=== PATIENT | female | born 2000 | race Caucasian/White ===

== ENCOUNTER 2021-06-02 04:56 | Inpatient (IN) | payer OTHER ==
[2021-06-02] MEDS ORDERED: Sodium Chloride 0.9% 10 ML Syringe FLUSH PRN (08:23)
[2021-06-02] MEDS ORDERED: Lidocaine 1% 50 ML MDV INJECT ONE (08:23)
[2021-06-02] MEDS ORDERED: Oxytocin/Lactated Ringers 10 UNIT/1,000 ML BAG IV SCH ×2 (08:30)
--- NOTE | 2021-06-02 08:36 | PCM.LDHP ---
L&D History of Present Illness - General Date of Service: 06/02/21 Admit Problem/Dx: Patient Status Order with Admit Dx/Problem 06/02/21 08:23 Patient Status [ADT] Routine Admission Diagnosis/Problem Admission Diagnosis/Problem - History of Present Illness Introduction:: Patient is a 20yo at 0 gestation who presents today for induction of labor secondary to suspected cholestasis with mild elevations in her transaminases. Bile acids are still pending. She has agreed to medical induction for suspected cholestasis based on elevated transaminases and full body itching at 37 weeks 1 day. She denies contractions, vaginal bleeding or leakage. She has been perceiving adequate movements. She had care via a local branch administrator for most of her . She has seen one of my partners wants around 28 weeks. OB Labs: Blood Type: A+ Ab screen: Positive, anti-M, extremely low risk for hemolysis Hep B sAg: Negative HIV: Negative RPR: Negative Rubella: immune GC/Chlamydia: Negative Glucose screen: Not performed GBS: initially declined. after further discussion on admission, she agrees to have the test. - Related Data Allergies/Adverse Reactions: Allergies Allergy/AdvReac Type Severity Reaction Status Date / Time No Known Allergies Allergy Verified 06/02/21 09:36 Home Medications: Home Meds Chlorpheniramine Maleate [Aller-Chlor] 1 tab PO DAILY PRN 06/02/21 [History] Pnv No.95/Ferrous Fum/Folic AC [ Multivitamin Tablet] 1 tab PO DAILY 06/02/21 [History] H&P Review of Systems - Review of Systems: Review Of Systems: See Below General: Reports: No Symptoms HEENT: Reports: No Symptoms Pulmonary: Reports: No Symptoms Cardiovascular: Reports: No Symptoms Gastrointestinal: Reports: No Symptoms Genitourinary: Reports: No Symptoms Musculoskeletal: Reports: No Symptoms Skin: Reports: No Symptoms Psychiatric: Reports: No Symptoms Neurological: Reports: No Symptoms Hematologic/Lymphatic: Reports: No Symptoms Immunologic: Reports: No Symptoms L&D Exam - Exam Exam: See Below - OB Specific Movement: Active Heart Tones: Present Heart Tones per Min: 155 Heart Rate (FHR) Variability: Moderate (6-25 bpm) Presentation: Vertex (confirmed by bedside US) - Rocha Score Rocha Score Cervix Position: Midposition Rocha Score Consistency: Medium Rocha Score Effacement: 51-70% Rocha Score Dilation: Closed Rocha Score 's Station: -3 Rocha Score Total: 4 - Exam General: Alert, Oriented HEENT: Conjunctiva Clear, Pupils Equal Neck: Supple Lungs: Clear to Auscultation, Normal Respiratory Effort Cardiovascular: Regular Rate, Regular Rhythm. No: Systolic Murmur GI/Abdominal Exam: Normal Bowel Sounds, Soft, Non-Tender Genitourinary: Normal external exam Extremities: Normal Inspection, No Pedal Edema Skin: Warm, Dry, Intact Psychiatric: Alert, Normal Affect, Normal Mood - Patient Data Result Diagrams: 06/02/21 09:45 06/02/21 09:45 - Problem List (1) Cholestasis during in third trimester SNOMED Code(s): 172026206 ICD Code: O26.613 - LIVER AND BILIARY TRACT DISORD IN , THIRD TRIMESTER; K83.1 - OBSTRUCTION OF BILE DUCT Status: Acute Current Visit: Yes Problem List Initiated/Reviewed/Updated: Yes Orders Last 24hrs: Active Orders 24 hr Category Date Time Status Patient Status [ADT] Routine ADT 06/02/21 08:23 Active Activity as Tolerated [RC] PFP Care 06/02/21 08:23 Active Communication Order [RC] ASDIRECTED Care 06/02/21 08:23 Active Heart Tones [RC] ASDIRECTED Care 06/02/21 08:24 Active Non Stress Test [RC] PER UNIT ROUTINE Care 06/02/21 08:23 Active Notify Provider [RC] PFP Care 06/02/21 08:23 Active Notify Provider [RC] PRN Care 06/02/21 08:23 Active Peripheral IV Care [RC] . DIRECTED Care 06/02/21 08:24 Active Urinary Catheter Assessment [RC] ASDIRECTED Care 06/02/21 08:23 Active Vital Signs [RC] PER UNIT ROUTINE Care 06/02/21 08:23 Active Regular Diet [DIET] Diet 06/02/21 Lunch Active CBC WITH AUTO DIFF [HEME] Stat Lab 06/02/21 08:23 Ordered COMPREHENSIVE METABOLIC PN,CMP [CHEM] Stat Lab 06/02/21 08:23 Ordered CORONAVIRUS COVID-19 JAMSHID [MOLEC] Stat Lab 06/02/21 08:25 Ordered RAPID PLASMA REAGIN,RPR [CHEM] Routine Lab 06/02/21 08:23 Ordered Lactated Ringers [Ringers, Lactated] 1,000 ml Med 06/02/21 08:30 Ordered IV ASDIRECTED Lidocaine 1% [Xylocaine 1%] Med 06/02/21 08:23 Once 50 ml INJECT ONETIME ONE Nalbuphine [Nubain] Med 06/02/21 08:23 Ordered 10 mg IVPUSH Q2H PRN Oxytocin/Lactated Ringers [Pitocin in LR 10 Units/1,000 Med 06/02/21 08:30 Ordered ML] 10 unit in 1,000 ml IV .CONTINUOUS Oxytocin/Lactated Ringers [Pitocin in LR 10 Units/1,000 Med 06/02/21 08:30 Ordered ML] 10 unit in 1,000 ml IV TITRATE Sodium Chloride 0.9% [Saline Flush] Med 06/02/21 08:23 Ordered 10 ml FLUSH ASDIRECTED PRN Electronic Heart Tones Ext w TOCO [WOMSER] Ot 06/02/21 08:23 Ordered Routine Electronic Heart Tones Internal [WOMSER] Per Unit Ot 06/02/21 08:23 Ordered Routine Peripheral IV Insertion Adult [OM.PC] Routine Ot 06/02/21 08:23 Ordered Resuscitation Status Routine Resus Stat 06/02/21 08:23 Ordered Medication Orders Oxytocin/Lactated Ringer's (Pitocin In Lr 10 Units/1,000 Ml) 10 unit in 1,000 mls @ 12 mls/hr IV TITRATE JOEY; Protocol Oxytocin/Lactated Ringer's (Pitocin In Lr 10 Units/1,000 Ml) 10 unit in 1,000 mls @ 100 mls/hr IV .CONTINUOUS JOEY; Protocol Lactated Ringer's (Ringers, Lactated) 1,000 mls @ 100 mls/hr IV ASDIRECTED JOEY Lidocaine HCl (Lidocaine 1% 50 Ml Mdv) 50 ml INJECT ONETIME ONE Stop: 06/02/21 08:24 Nalbuphine HCl (Nalbuphine 10 Mg/1 Ml Vial) 10 mg IVPUSH Q2H PRN PRN Reason: Pain Sodium Chloride (Sodium Chloride 0.9% 10 Ml Syringe) 10 ml FLUSH ASDIRECTED PRN PRN Reason: Keep Vein Open Assessment/Plan Comment:: 20-year-old at 37 weeks 1 day presenting for induction of labor secondary to suspected cholestasis of with elevated transaminases. Admit to labor and delivery. Cervical ripening with cytotec and durham bulb per patient request. EFM and toco to monitor for progress of labor. If GBS results not back prior to active labor, will discuss penicillin prop hylaxis. The patient was comfortable with the above plan and all questions were answered. Sheryl Vaz MD Family Medicine
[2021-06-02] MEDS ORDERED: Misoprostol 25 MCG (1/4 of 100 MCG) Tab VAG ONE ×2 (09:17→13:37)
--- NOTE | 2021-06-02 21:03 | PCM.PNLD ---
Labor Progress Note - VS & Meds Vital Signs: Last Vital Signs Temp 97.9 F 06/02/21 08:23 Pulse Resp 14 06/02/21 08:23 BP 122/77 06/02/21 08:23 Pulse Ox 99 06/02/21 08:23 Active Medications: Current Medications Oxytocin/Lactated Ringer's (Pitocin In Lr 10 Units/1,000 Ml) 10 unit in 1,000 mls @ 12 mls/hr IV TITRATE JOEY; Protocol Oxytocin/Lactated Ringer's (Pitocin In Lr 10 Units/1,000 Ml) 10 unit in 1,000 mls @ 100 mls/hr IV .CONTINUOUS JOEY; Protocol Lactated Ringer's (Ringers, Lactated) 1,000 mls @ 100 mls/hr IV ASDIRECTED JOEY Nalbuphine HCl (Nalbuphine 10 Mg/1 Ml Vial) 10 mg IVPUSH Q2H PRN PRN Reason: Pain Sodium Chloride (Sodium Chloride 0.9% 10 Ml Syringe) 10 ml FLUSH ASDIRECTED PRN PRN Reason: Keep Vein Open Discontinued Medications Lidocaine HCl (Lidocaine 1% 50 Ml Mdv) 50 ml INJECT ONETIME ONE Stop: 06/02/21 08:24 Misoprostol (Misoprostol 25 Mcg (1/4 Of 100 Mcg) Tab) 25 mcg VAG ONETIME ONE Stop: 06/02/21 09:18 Last Admin: 06/02/21 09:29 Dose: 25 mcg Documented by: Misoprostol (Misoprostol 25 Mcg (1/4 Of 100 Mcg) Tab) 25 mcg VAG Q4HR ONE Stop: 06/02/21 13:38 Last Admin: 06/02/21 15:21 Dose: 25 mcg Documented by: - Monitoring Monitor Mode: External Ultrasound Heart Rate (FHR) Baseline: 145 Heart Rate (FHR) Variability: Moderate (6-25 bpm) Accelerations: Present, 15x15 Decelerations: None Strip Review: Category I - Labor Progress (Free Text) Labor Progress: Doing well. Having some cramping. [place] bulb fell out earlier this afternoon. No new complaints. Itching well controlled. Declining cervical exam at this time. Category 1 EFM 20yo at 37wks 1 day presenting for induction of labor secondary to suspected cholestasis of with elevated transaminases. S/p two doses of cytotec with durham bulb, now expelled. Declined last dose of cytotec. Desires to walk and express breastmilk with her pump at this time. Discussed plan of care. Will plan to use oral cytotec overnight. Repeat vaginal exam in am. Pt and comfortable with plan of care. freya
[2021-06-02] MEDS: diphenhydrAMINE 50 MG/ML SDV IVPUSH PRN (21:53)
[2021-06-03] MEDS: Misoprostol 25 MCG (1/4 of 100 MCG) Tab PO SCH ×4 (01:05→12:16)
[2021-06-03] MEDS ORDERED: Docusate Sodium 100 MG Cap PO PRN (05:09)
--- NOTE | 2021-06-03 08:22 | PCM.PNLD ---
Labor Progress Note - VS & Meds Vital Signs: Last Vital Signs Temp 97.9 F 06/02/21 08:23 Pulse Resp 14 06/02/21 08:23 BP 122/77 06/02/21 08:23 Pulse Ox 99 06/02/21 08:23 Active Medications: Current Medications Diphenhydramine HCl (Diphenhydramine 50 Mg/Ml Sdv) 25 mg IVPUSH Q6H PRN PRN Reason: Itching Last Admin: 06/02/21 21:53 Dose: 25 mg Documented by: Docusate Sodium (Docusate Sodium 100 Mg Cap) 100 mg PO Q12H PRN PRN Reason: Constipation Last Admin: 06/03/21 05:43 Dose: 100 mg Documented by: Oxytocin/Lactated Ringer's (Pitocin In Lr 10 Units/1,000 Ml) 10 unit in 1,000 mls @ 12 mls/hr IV TITRATE JOEY; Protocol Oxytocin/Lactated Ringer's (Pitocin In Lr 10 Units/1,000 Ml) 10 unit in 1,000 mls @ 100 mls/hr IV .CONTINUOUS JOEY; Protocol Lactated Ringer's (Ringers, Lactated) 1,000 mls @ 100 mls/hr IV ASDIRECTED JOEY Misoprostol (Misoprostol 25 Mcg (1/4 Of 100 Mcg) Tab) 50 mcg PO Q4H JOEY Last Admin: 06/03/21 06:18 Dose: Not Given Documented by: Nalbuphine HCl (Nalbuphine 10 Mg/1 Ml Vial) 10 mg IVPUSH Q2H PRN PRN Reason: Pain Sodium Chloride (Sodium Chloride 0.9% 10 Ml Syringe) 10 ml FLUSH ASDIRECTED PRN PRN Reason: Keep Vein Open Discontinued Medications Lidocaine HCl (Lidocaine 1% 50 Ml Mdv) 50 ml INJECT ONETIME ONE Stop: 06/02/21 08:24 Misoprostol (Misoprostol 25 Mcg (1/4 Of 100 Mcg) Tab) 25 mcg VAG ONETIME ONE Stop: 06/02/21 09:18 Last Admin: 06/02/21 09:29 Dose: 25 mcg Documented by: Misoprostol (Misoprostol 25 Mcg (1/4 Of 100 Mcg) Tab) 25 mcg VAG Q4HR ONE Stop: 06/02/21 13:38 Last Admin: 06/02/21 15:21 Dose: 25 mcg Documented by: - Monitoring Monitor Mode: External Ultrasound Heart Rate (FHR) Baseline: 145 Heart Rate (FHR) Variability: Moderate (6-25 bpm) Accelerations: Present, 15x15 Decelerations: None Strip Review: Category I - Labor Progress (Free Text) Labor Progress: Rhonda is more uncomfortable this morning. States her contractions picked up after last cytotec dose and she is starting to get "grunty" and shaky. She got in the tub which helped with her pain control. Breathing through contractions now. Denies LOF. No bloody show. Cervical check declined. Category 1 EFM. 20yo at 37w2d here for induction of labor for suspected cholestasis of . Bile acids drawn a week ago returned yesterday. Total bile acids are normal but fractionated cholic acids elevated twice upper limit of normal. Transaminases are trending up. BPs and platelets wnl. Discussed plan of care. Will continue expectant management since she is regina some on her own. Will recommend vaginal exam at SROM or if contractions slow down. Then we can discuss next step, either AROM or pitocin. Patient comfortable with above plan and questions answered. freya
[2021-06-03] MEDS ORDERED: Lidocaine 1% 50 ML MDV ONE (11:36)
[2021-06-03] MEDS ORDERED: diphenhydrAMINE/Zinc Acetate 1% Crm 28.3 GM Tube TOP PRN (12:11)
[2021-06-03] MEDS ORDERED: diphenhydrAMINE 50 MG Cap PO PRN (12:14)
[2021-06-03] MEDS: Nalbuphine 10 MG/1 ML Vial IVPUSH PRN (12:54)
--- NOTE | 2021-06-03 13:16 | PCM.SN.2 ---
- Free Text/Narrative Note: 1230 Breathing and moaning through contractions. No LOF. Panel Machine Setter at bedside states she observes outward signs of complete dilation. patient requesting AROM. Cervical exam 3cm/90/-2/soft/mid No AROM completed at this time. Discussed ongoing plan of care. Will hold off on AROM at this time. She would like to go back in the tub. Offered IV and epidural anagesia and she declines. Continue expectant management. freya
--- NOTE | 2021-06-03 20:10 | PCM.SN.2 ---
- Free Text/Narrative Note: Rhonda is doing well this evening. She got some IV nubain this afternoon and was able to rest some. Her contractions slowed down, however. Denies LOF. Declines cervical exam at this time. EFM category 1. She would like to try pumping and walking to help get contractions going. If contractions not strengthening and increasing in frequency within 4 hours, recommend further augmentation with pitocin and/or AROM. She was in agreement with above plan. Questions answered. freya
[2021-06-03] MEDS ORDERED: Polyethylene Glycol 3350 Powder 17 GM Packet PO PRN (20:12)
[2021-06-04] MEDS: Nalbuphine 10 MG/1 ML Vial IVPUSH PRN (01:17)
--- NOTE | 2021-06-04 01:52 | PCM.SN.2 ---
- Free Text/Narrative Note: 0130 Rhonda is having painful regular contractions. Breathing through them. Complaining of feeling exhausted. Looking to discuss pain management options. Just requested another dose of Nubain which was given per nursing. Declines cervical exam. Skein Winder has noted bloody show. No LOF yet. EFM category 1. Contractions q 2-5 min Discussed options for further plan of care. She ultimately decided to proceed with epidural. After that, we discussed cervical exam with AROM vs starting low dose pitocin. QUestions answered. freya
[2021-06-04] MEDS ORDERED: diphenhydrAMINE 50 MG/ML SDV IVPUSH PRN (01:58)
[2021-06-04] MEDS ORDERED: ePHEDrine 50 MG/ML SDV IVPUSH PRN (01:58)
[2021-06-04] MEDS: Lactated Ringers 1,000 ML IV SCH ×4 (02:00→23:05)
--- NOTE | 2021-06-04 02:07 | PCM.PREANE ---
Preanesthetic Assessment - Procedure Proposed Procedure: Labor epidural - Anesthesia/Transfusion/Family Hx Anesthesia History: No Prior Anesthesia Family History of Anesthesia Reaction: No Transfusion History: No Prior Transfusion(s) Intubation History: Unknown - Review of Systems General: No Symptoms Pulmonary: No Symptoms Cardiovascular: No Symptoms Gastrointestinal: Abdominal Pain (uterine contractions), Vomiting Neurological: No Symptoms Other: Reports: Liver Problems (elevated liver enzymes; ) - Physical Assessment NPO Status Date: 06/04/21 NPO Status Time: 02:00 Vital Signs: Last Vital Signs Temp 97.9 F 06/02/21 08:23 Pulse Resp 14 06/02/21 08:23 BP 122/77 06/02/21 08:23 Pulse Ox 99 06/02/21 08:23 HR 83 Height: 1.6 m Weight: 64.637 kg ASA Class: 2 Mental Status: Alert & Oriented x3 Airway Class: Mallampati = 2 Dentition: Reports: Normal Dentition Thyro-Mental Finger Breadths: 3 Mouth Opening Finger Breadths: 3 ROM/Head Extension: Full Lungs: Clear to Auscultation, Normal Respiratory Effort Cardiovascular: Regular Rate, Regular Rhythm, No Murmurs - Lab Values: Laboratory Last Values WBC 8.43 K/mm3 (3.98-10.04) 06/02/21 09:45 RBC 4.39 M/mm3 (3.98-5.22) 06/02/21 09:45 Hgb 13.2 gm/dl (11.2-15.7) 06/02/21 09:45 Hct 39.1 % (34.1-44.9) 06/02/21 09:45 MCV 89.1 fl (79.4-94.8) 06/02/21 09:45 MCH 30.1 pg (25.6-32.2) 06/02/21 09:45 MCHC 33.8 g/dl (32.2-35.5) 06/02/21 09:45 RDW Std Deviation 41.2 fL (36.4-46.3) 06/02/21 09:45 Plt Count 345 K/mm3 (182-369) 06/02/21 09:45 MPV 9.2 fl (9.4-12.3) L 06/02/21 09:45 Neut % (Auto) 60.1 % (34.0-71.1) 06/02/21 09:45 Lymph % (Auto) 24.0 % (19.3-51.7) 06/02/21 09:45 [place] % (Auto) 15.1 % (4.7-12.5) H 06/02/21 09:45 Eos % (Auto) 0.7 (0.7-5.8) 06/02/21 09:45 Baso % (Auto) 0.0 % (0.1-1.2) L 06/02/21 09:45 Neut # (Auto) 5.07 K/mm3 (1.56-6.13) 06/02/21 09:45 Lymph # (Auto) 2.02 K/mm3 (1.18-3.74) 06/02/21 09:45 [place] # (Auto) 1.27 K/mm3 (0.24-0.36) H 06/02/21 09:45 Eos # (Auto) 0.06 K/mm3 (0.04-0.36) 06/02/21 09:45 Baso # (Auto) 0.00 K/mm3 (0.01-0.08) L 06/02/21 09:45 Sodium 137 mEq/L (136-145) 06/02/21 09:45 Potassium 4.0 mEq/L (3.5-5.1) 06/02/21 09:45 Chloride 102 mEq/L (98-107) 06/02/21 09:45 Carbon Dioxide 25 mEq/L (21-32) 06/02/21 09:45 Anion Gap 14.0 (5-15) 06/02/21 09:45 BUN 9 mg/dL (7-18) 06/02/21 09:45 Creatinine 0.7 mg/dL (0.55-1.02) 06/02/21 09:45 Est Cr Clr Drug Dosing 106.93 mL/min 06/02/21 09:45 Estimated GFR (MDRD) > 60 mL/min (>60) 06/02/21 09:45 BUN/Creatinine Ratio 12.9 (14-18) L 06/02/21 09:45 Glucose 84 mg/dL (70-99) 06/02/21 09:45 Calcium 9.0 mg/dL (8.5-10.1) 06/02/21 09:45 Total Bilirubin 0.5 mg/dL (0.2-1.0) 06/02/21 09:45 AST 61 U/L (15-37) H 06/02/21 09:45 ALT 118 U/L (14-59) H 06/02/21 09:45 Alkaline Phosphatase 310 U/L (46-116) H 06/02/21 09:45 Total Protein 7.1 g/dl (6.4-8.2) 06/02/21 09:45 Albumin 2.4 g/dl (3.4-5.0) L 06/02/21 09:45 Globulin 4.7 gm/dL 06/02/21 09:45 Albumin/Globulin Ratio 0.5 (1-2) L 06/02/21 09:45 RPR Non-reactive (NONREACTIVE) 06/02/21 09:45 SARS-CoV-2 RNA (JAMSHID) Negative (NEGATIVE) 06/02/21 08:45 Group B Strep (PCR) Negative (NEGATIVE) 06/02/21 09:19 - Allergies Allergies/Adverse Reactions: Allergies Allergy/AdvReac Type Severity Reaction Status Date / Time No Known Allergies Allergy Verified 06/02/21 09:36 - Acknowledgements Anesthesia Type Planned: Epidural Pt an Appropriate Candidate for the Planned Anesthesia: Yes Alternatives and Risks of Anesthesia Discussed w Pt/Guardian: Yes Pt/Guardian Understands and Agrees with Anesthesia Plan: Yes PreAnesthesia Questionnaire HEENT History: Reports: None Cardiovascular History: Reports: None Respiratory History: Reports: None Gastrointestinal History: Reports: None Genitourinary History: Reports: None 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: Musculoskeletal History: Reports: None Neurological History: Reports: None Psychiatric History: Reports: Depression Endocrine/Metabolic History: Reports: None Hematologic History: Reports: None Immunologic History: Reports: None Oncologic (Cancer) History: Reports: None Dermatologic History: Reports: None - Infectious Disease History Infectious Disease History: Reports: None - SUBSTANCE USE Tobacco Use Status *Q: Never Tobacco User Tobacco Use Within Last Twelve Months: No Second Hand Smoke Exposure: No Days Per Week of Alcohol Use: 0 Number of Drinks Per Day: 0 Total Drinks Per Week: 0 Recreational Drug Use History: No - HOME MEDS Home Medications: Home Meds Chlorpheniramine Maleate [Aller-Chlor] 1 tab PO DAILY PRN 06/02/21 [History] Pnv No.95/Ferrous Fum/Folic AC [ Multivitamin Tablet] 1 tab PO DAILY 06/02/21 [History] - CURRENT (IN HOUSE) MEDS Current Meds: Current Medications Diphenhydramine HCl (Diphenhydramine 50 Mg/Ml Sdv) 25 mg IVPUSH Q6H PRN PRN Reason: Itching Last Admin: 06/02/21 21:53 Dose: 25 mg Documented by: Diphenhydramine HCl (Diphenhydramine 50 Mg Cap) 50 mg PO Q6H PRN PRN Reason: Itching Diphenhydramine HCl (Diphenhydramine 50 Mg/Ml Sdv) 25 mg IVPUSH Q6H PRN PRN Reason: pruritis Docusate Sodium (Docusate Sodium 100 Mg Cap) 100 mg PO Q12H PRN PRN Reason: Constipation Last Admin: 06/03/21 05:43 Dose: 100 mg Documented by: Ephedrine Sulfate (Ephedrine 50 Mg/Ml Sdv) 5 mg IVPUSH ASDIRECTED PRN PRN Reason: Hypotension Fentanyl (Fentanyl 100 Mcg/2 Ml Sdv) 100 mcg EPIDUR Q3H PRN PRN Reason: Pain Fentanyl/Bupivacaine HCl (Bupivacaine/Fentanyl/Ns 100 Ml Bag) 100 ml EPIDUR ASDIRECTED PRN PRN Reason: Pain Oxytocin/Lactated Ringer's (Pitocin In Lr 10 Units/1,000 Ml) 10 unit in 1,000 mls @ 12 mls/hr IV TITRATE JOEY; Protocol Oxytocin/Lactated Ringer's (Pitocin In Lr 10 Units/1,000 Ml) 10 unit in 1,000 mls @ 100 mls/hr IV .CONTINUOUS JOEY; Protocol Lactated Ringer's (Ringers, Lactated) 1,000 mls @ 100 mls/hr IV ASDIRECTED JOEY Nalbuphine HCl (Nalbuphine 10 Mg/1 Ml Vial) 10 mg IVPUSH Q2H PRN PRN Reason: Pain Last Admin: 06/04/21 01:17 Dose: 10 mg Documented by: Polyethylene Glycol (Polyethylene Glycol 3350 Powder 17 Gm Packet) 17 gm PO Q8H PRN PRN Reason: Constipation Last Admin: 06/03/21 22:31 Dose: 17 gm Documented by: Sodium Chloride (Sodium Chloride 0.9% 10 Ml Syringe) 10 ml FLUSH ASDIRECTED PRN PRN Reason: Keep Vein Open Zinc Acetate/Diphenhydramine (Diphenhydramine/Zinc Acetate 1% Crm 28.3 Gm Tube) 0 gm TOP ASDIRECTED PRN PRN Reason: Itching Last Admin: 06/03/21 12:24 Dose: 1 applic Documented by: Discontinued Medications Lidocaine HCl (Lidocaine 1% 50 Ml Mdv) 50 ml INJECT ONETIME ONE Stop: 06/02/21 08:24 Lidocaine HCl (Lidocaine 1% 50 Ml Mdv) Confirm Administered Dose 50 ml .ROUTE .STK-MED ONE Stop: 06/03/21 11:37 Last Admin: 06/03/21 21:32 Dose: Not Given Documented by: Misoprostol (Misoprostol 25 Mcg (1/4 Of 100 Mcg) Tab) 25 mcg VAG ONETIME ONE Stop: 06/02/21 09:18 Last Admin: 06/02/21 09:29 Dose: 25 mcg Documented by: Misoprostol (Misoprostol 25 Mcg (1/4 Of 100 Mcg) Tab) 25 mcg VAG Q4HR ONE Stop: 06/02/21 13:38 Last Admin: 06/02/21 15:21 Dose: 25 mcg Documented by: Misoprostol (Misoprostol 25 Mcg (1/4 Of 100 Mcg) Tab) 50 mcg PO Q4H [facility] Last Admin: 06/03/21 12:16 Dose: Not Given Documented by:
[2021-06-04] MEDS: fentaNYL 100 MCG/2 ML SDV EPIDUR PRN ×2 (03:25→22:32)
[2021-06-04] MEDS: Bupivacaine/fentaNYL/NS 100 ML Bag EPIDUR PRN ×2 (03:26→21:41)
[2021-06-04] MEDS: Oxytocin/Lactated Ringers 10 UNIT/1,000 ML BAG IV SCH (04:45)
--- NOTE | 2021-06-04 04:46 | PCM.SN.2 ---
- Free Text/Narrative Note: 0440 comfortable with epidural. no complaints. Declines cervical exam. EFM category 1. contractions q 5-10 min. Discussed ongoing management including AROM vs pitocin. She would like to avoid cervical checks for the most part due to oriental orthodox reasons. She agrees to start pitocin. Continue other cares. questions answered. freya
--- NOTE | 2021-06-04 08:24 | PCM.SN.2 ---
- Free Text/Narrative Note: Comfortable with epidural. Able to get some sleep. Declines cervical exam. EFM cat 1 cxns q 4-8 min. pitocin rate at 6mu/min. Discussed plan of care. She wishes to continue to increase pitocin until in a good contraction pattern, q 3-4 min. Once here, I recommend a cervical exam to confirm progress of labor. Offered arom at that time as well. She will consider this. questions answered. freya
[2021-06-04] MEDS: diphenhydrAMINE 50 MG/ML SDV IVPUSH PRN (20:31)
[2021-06-04] MEDS ORDERED: Acetaminophen 325 MG Tab PO STA (21:44)
--- NOTE | 2021-06-04 22:35 | PCM.SN.2 ---
- Free Text/Narrative Note: 2219 Rhonda is fairly comfortable with epidural. She is starting to feel quite a bit of pain in right hip/groin with contractions. pelvic pressure noted with contractions as well, not between. cervical exam 8-9cm/90%/0 EFM category 1 contractions 1-4 min on 13mu/min pitocin SROM occurred 1414 Continue current cares. GEOSCIENCE SPECIALIST contacted to turn up epidural rate to try achieve more analgesia. freya
[2021-06-05] MEDS ORDERED: Bupivacaine 0.25% 10 ML SDV ONE
[2021-06-05] MEDS: Oxytocin/Lactated Ringers 10 UNIT/1,000 ML BAG IV SCH ×2 (00:03→05:39)
[2021-06-05] MEDS: Lactated Ringers 1,000 ML IV SCH (01:48)
--- NOTE | 2021-06-05 02:42 | PCM.SN.2 ---
- Free Text/Narrative Note: Rhonda is much more comfortable after epidural bolus and rate increase. Notified by nursing that cervical check is actually 3cm. Prior check by myself was poorly tolerated so I could only get as far as anterior lip which was thin before patient asked to stop. She has continued to leak clear fluid since SROM 1415. Cervical exam 3cm/90/0. Forebag noted and AROM completed for moderate to large amount of fluid. EFM category 1 cxns q 2-3 min notified pt of cervical check. After check she noted more pelvic pressure. Will continue with current cares. Recheck in 2 hrs to confirm progress of labor. Pt agreeable to this. [email or web address]
--- NOTE | 2021-06-05 05:32 | PCM.DEL ---
L & D Note - General Info Date of Service: 06/05/21 - Delivery Note Labor: Induced by Oxytocin Cervical Ripening Method: Balloon Device, Misoprostil Delivery Outcome: Livebirth Delivery Method: Spontaneous Vaginal Delivery-Single Infant Delivery Mode: Spontaneous Presentation: Right Occiput Anterior (TEMITOPE) Nuchal Cord: None Anesthesia Type: Epidural Amniotic Fluid Description: Clear Laceration: 2nd Degree Suture type: Vicryl Suture size: 3-0 Placenta: Intact, Spontaneous Cord: 3 Vessels Estimated Blood Loss: 200 Resuscitation Needed: No [place]: Stimulated, Warmed, [place] Used Second Stage Interventions: Reports: Encouragement Given, Pushing Effectively Delivery Comments (Free Text/Narrative):: Rhonda is a 20yo G1, now P1 who presented for induction of labor secondary to suspected cholestasis of with elevated transaminases. Cervical ripening performed with durham bulb and cytotec. She then wished to use breast stimulation and walking for induction of contractions. She tried this for close to 24 hours with some spontaneous painful contractions but no cervical dilation. She then received pitocin. She did receive epidural analgesia. She had SROM but again failed to make cervical change within 12 hours of SROM and AROM of forebag was completed. She progressed then to complete dilation. Head delivered spontaneously. No cord complications. Body delivered without incident and vigorous female placed on mom's chest. Placenta delivered spontaneously and intact. 2nd degree perineal laceration was repaired in usual fashion. Good hemostasis. EBL 200ml. - General Info Date of Service: 06/05/21 - Patient Data Vitals - Most Recent: Last Vital Signs Temp 97.9 F 06/02/21 08:23 Pulse Resp 14 06/02/21 08:23 BP 122/77 06/02/21 08:23 Pulse Ox 99 06/02/21 08:23 Weight - Most Recent: 64.637 kg I&O - Last 24 Hours: Intake & Output 06/04/21 06/04/21 06/05/21 14:59 22:59 06:59 Intake Total 999 1999 Output Total 2049 1350 1250 Balance -2049 -350 750 Med Orders - Current: Current Medications Diphenhydramine HCl (Diphenhydramine 50 Mg/Ml Sdv) 25 mg IVPUSH Q6H PRN PRN Reason: Itching Last Admin: 06/04/21 20:31 Dose: 25 mg Documented by: Diphenhydramine HCl (Diphenhydramine 50 Mg Cap) 50 mg PO Q6H PRN PRN Reason: Itching Docusate Sodium (Docusate Sodium 100 Mg Cap) 100 mg PO Q12H PRN PRN Reason: Constipation Last Admin: 06/03/21 05:43 Dose: 100 mg Documented by: Ephedrine Sulfate (Ephedrine 50 Mg/Ml Sdv) 5 mg IVPUSH ASDIRECTED PRN PRN Reason: Hypotension Fentanyl (Fentanyl 100 Mcg/2 Ml Sdv) 100 mcg EPIDUR Q3H PRN PRN Reason: Pain Last Admin: 06/04/21 22:32 Dose: 100 mcg Documented by: Fentanyl/Bupivacaine HCl (Bupivacaine/Fentanyl/Ns 100 Ml Bag) 100 ml EPIDUR ASDIRECTED PRN PRN Reason: Pain Last Admin: 06/04/21 21:41 Dose: 100 ml Documented by: Oxytocin/Lactated Ringer's (Pitocin In Lr 10 Units/1,000 Ml) 10 unit in 1,000 mls @ 100 mls/hr IV .CONTINUOUS JOEY; Protocol Lactated Ringer's (Ringers, Lactated) 1,000 mls @ 100 mls/hr IV ASDIRECTED JOEY Last Admin: 06/05/21 01:48 Dose: 100 mls/hr Documented by: Oxytocin/Lactated Ringer's (Pitocin In Lr 10 Units/1,000 Ml) 10 unit in 1,000 mls @ 6 mls/hr IV TITRATE JOEY; Protocol Last Titration: 06/05/21 03:41 Dose: 15 munits/min, 90 mls/hr Documented by: Nalbuphine HCl (Nalbuphine 10 Mg/1 Ml Vial) 10 mg IVPUSH Q2H PRN PRN Reason: Pain Last Admin: 06/04/21 01:17 Dose: 10 mg Documented by: Polyethylene Glycol (Polyethylene Glycol 3350 Powder 17 Gm Packet) 17 gm PO Q8H PRN PRN Reason: Constipation Last Admin: 06/03/21 22:31 Dose: 17 gm Documented by: Sodium Chloride (Sodium Chloride 0.9% 10 Ml Syringe) 10 ml FLUSH ASDIRECTED PRN PRN Reason: Keep Vein Open Zinc Acetate/Diphenhydramine (Diphenhydramine/Zinc Acetate 1% Crm 28.3 Gm Tube) 0 gm TOP ASDIRECTED PRN PRN Reason: Itching Last Admin: 06/03/21 12:24 Dose: 1 applic Documented by: Discontinued Medications Acetaminophen (Acetaminophen 325 Mg Tab) 975 mg PO NOW STA Stop: 06/04/21 21:45 Last Admin: 06/04/21 21:51 Dose: 975 mg Documented by: Diphenhydramine HCl (Diphenhydramine 50 Mg/Ml Sdv) 25 mg IVPUSH Q6H PRN PRN Reason: pruritis Oxytocin/Lactated Ringer's (Pitocin In Lr 10 Units/1,000 Ml) 10 unit in 1,000 mls @ 12 mls/hr IV TITRATE JOEY; Protocol Lidocaine HCl (Lidocaine 1% 50 Ml Mdv) 50 ml INJECT ONETIME ONE Stop: 06/02/21 08:24 Lidocaine HCl (Lidocaine 1% 50 Ml Mdv) Confirm Administered Dose 50 ml .ROUTE .STK-MED ONE Stop: 06/03/21 11:37 Last Admin: 06/03/21 21:32 Dose: Not Given Documented by: Misoprostol (Misoprostol 25 Mcg (1/4 Of 100 Mcg) Tab) 25 mcg VAG ONETIME ONE Stop: 06/02/21 09:18 Last Admin: 06/02/21 09:29 Dose: 25 mcg Documented by: Misoprostol (Misoprostol 25 Mcg (1/4 Of 100 Mcg) Tab) 25 mcg VAG Q4HR ONE Stop: 06/02/21 13:38 Last Admin: 06/02/21 15:21 Dose: 25 mcg Documented by: Misoprostol (Misoprostol 25 Mcg (1/4 Of 100 Mcg) Tab) 50 mcg PO Q4H JOEY Last Admin: 06/03/21 12:16 Dose: Not Given Documented by: - Exam Urinary Catheter Total Time: 0Days 0Hours - Problem List & Annotations (1) Cholestasis during in third trimester SNOMED Code(s): 772724295 Code(s): O26.613 - LIVER AND BILIARY TRACT DISORD IN , THIRD TRIMESTER; K83.1 - OBSTRUCTION OF BILE DUCT Status: Acute Current Visit: Yes (2) (normal spontaneous vaginal delivery) SNOMED Code(s): 24486443, 370180984 Code(s): O80 - ENCOUNTER FOR FULL-TERM UNCOMPLICATED DELIVERY Status: Acute Current Visit: Yes - Problem List Review Problem List Initiated/Reviewed/Updated: Yes - My Orders Last 24 Hours: My Active Orders 06/04/21 04:45 Oxytocin/Lactated Ringers [Pitocin in LR 10 Units/1,000 ML] 10 unit in 1,000 ml IV TITRATE - Plan Plan:: Routine cares. The patient was comfortable with the above plan and all questions were answered. Sheryl Vaz MD Family Medicine
[2021-06-05] MEDS ORDERED: Witch Hazel Medicated Pads 40/Jar TOP PRN (10:50)
[2021-06-05] MEDS ORDERED: Benzocaine/Menthol 20%-0.5% Spray 56 GM Canister TOP PRN (10:50)
[2021-06-05] MEDS ORDERED: Ibuprofen 600 MG Tab PO PRN (10:50)
--- NOTE | 2021-06-06 07:36 | PCM48HPAN ---
Post Anesthesia Note - EVALUATION WITHIN 48HRS OF ANESTHETIC Vital Signs in Normal Range: Yes Patient Participated in Evaluation: Yes Respiratory Function Stable: Yes Airway Patent: Yes Cardiovascular Function Stable: Yes Hydration Status Stable: Yes Pain Control Satisfactory: Yes Nausea and Vomiting Control Satisfactory: Yes Mental Status Recovered: Yes Vital Signs: Last Vital Signs Temp 97.7 F 06/06/21 03:16 Pulse 63 06/06/21 03:16 Resp 14 06/06/21 03:16 BP 115/59 L 06/06/21 03:16 Pulse Ox 96 06/06/21 03:16
--- NOTE | 2021-06-06 13:05 | PCM.DCSUM1 ---
Discharge Summary - Hospital Course Free Text/Narrative:: Rhonda is a 20 yo G1, now P1 who is day 1 s/p . Delivery complications: None course: Uncomplicated, pain well controlled, lochia mild/moderate, urinating spontaneously, bowel function has returned. Maternal labs: Blood type A+ Ab screen: Positive, anti-M rubella: Immune Diagnosis: Stroke: No - Discharge Data Discharge Date: 06/06/21 Discharge Disposition: Home, Self-Care 01 Condition: Good - Referral to Home Health Primary Care Physician: Sheryl Vaz MD - Discharge Diagnosis/Problem(s) (1) Cholestasis during in third trimester SNOMED Code(s): 784536607 ICD Code: O26.613 - LIVER AND BILIARY TRACT DISORD IN , THIRD TRIMESTER; K83.1 - OBSTRUCTION OF BILE DUCT Status: Resolved (2) (normal spontaneous vaginal delivery) SNOMED Code(s): 93558000, 471508176 ICD Code: O80 - ENCOUNTER FOR FULL-TERM UNCOMPLICATED DELIVERY Status: Acute - Patient Instructions Diet: Regular Diet as Tolerated Activity: As Tolerated Driving: May Drive Today Notify Provider of: Fever, Increased Pain, Nausea and/or Vomiting - Discharge Plan *PRESCRIPTION DRUG MONITORING PROGRAM REVIEWED*: Not Applicable *COPY OF PRESCRIPTION DRUG MONITORING REPORT IN PATIENT NISA: Not Applicable Home Medications: Home Meds Chlorpheniramine Maleate [Aller-Chlor] 1 tab PO DAILY PRN 06/02/21 [History] Pnv No.95/Ferrous Fum/Folic AC [ Multivitamin Tablet] 1 tab PO DAILY 06/02/21 [History] Oxygen Therapy Mode: Room Air Patient Handouts: Care After Vaginal Delivery Referrals: Sheryl Vaz MD [Primary Care Provider] - () - Discharge Summary/Plan Comment DC Time >30 min.: No Total # of Minutes for Discharge Time: 15 Discharge Summary/Plan Comment: Discharge to home. Return criteria discussed in great detail including heavy bleeding, worsening pain, fever/chills. Signs and symptoms of depression were discussed. Follow-up in 6 weeks for exam. The patient was comfortable with the above plan and all questions were answered. Sheryl Vaz MD Family Medicine - General Info Date of Service: 06/06/21 Admission Dx/Problem (Free Text: Patient Status Order with Admit Dx/Problem 06/02/21 08:23 Patient Status [ADT] Routine Admission Diagnosis/Problem Admission Diagnosis/Problem Cholestasis of Functional Status: Reports: Pain Controlled, Tolerating Diet, Ambulating, Urinating - Review of Systems General: Reports: No Symptoms HEENT: Reports: No Symptoms Pulmonary: Reports: No Symptoms Cardiovascular: Reports: No Symptoms Gastrointestinal: Reports: No Symptoms Genitourinary: Reports: No Symptoms Musculoskeletal: Reports: No Symptoms Skin: Reports: No Symptoms Neurological: Reports: No Symptoms Psychiatric: Reports: No Symptoms - Patient Data Vitals - Most Recent: Last Vital Signs Temp 97.7 F 06/06/21 09:07 Pulse 62 06/06/21 09:07 Resp 16 06/06/21 09:07 BP 108/55 L 06/06/21 09:07 Pulse Ox 96 06/06/21 09:07 Weight - Most Recent: 64.637 kg Med Orders - Current: Current Medications Discontinued Medications Acetaminophen (Acetaminophen 325 Mg Tab) 975 mg PO NOW STA Stop: 06/04/21 21:45 Last Admin: 06/04/21 21:51 Dose: 975 mg Documented by: Benzocaine/Menthol (Benzocaine/Menthol 20%-0.5% [place] 56 Gm Canister) 0 gm TOP ASDIRECTED PRN PRN Reason: Perineal Comfort Measure Last Admin: 06/05/21 12:55 Dose: 1 can Documented by: Bupivacaine HCl (Bupivacaine 0.25% 10 Ml Sdv) 10 ml .ROUTE .STK-MED ONE Stop: 06/05/21 00:01 Diphenhydramine HCl (Diphenhydramine 50 Mg/Ml Sdv) 25 mg IVPUSH Q6H PRN PRN Reason: Itching Last Admin: 06/04/21 20:31 Dose: 25 mg Documented by: Diphenhydramine HCl (Diphenhydramine 50 Mg Cap) 50 mg PO Q6H PRN PRN Reason: Itching Diphenhydramine HCl (Diphenhydramine 50 Mg/Ml Sdv) 25 mg IVPUSH Q6H PRN PRN Reason: pruritis Docusate Sodium (Docusate Sodium 100 Mg Cap) 100 mg PO Q12H PRN PRN Reason: Constipation Last Admin: 06/03/21 05:43 Dose: 100 mg Documented by: Ephedrine Sulfate (Ephedrine 50 Mg/Ml Sdv) 5 mg IVPUSH ASDIRECTED PRN PRN Reason: Hypotension Fentanyl (Fentanyl 100 Mcg/2 Ml Sdv) 100 mcg EPIDUR Q3H PRN PRN Reason: Pain Last Admin: 06/04/21 22:32 Dose: 100 mcg Documented by: Fentanyl/Bupivacaine HCl (Bupivacaine/Fentanyl/Ns 100 Ml Bag) 100 ml EPIDUR ASDIRECTED PRN PRN Reason: Pain Last Admin: 06/04/21 21:41 Dose: 100 ml Documented by: Oxytocin/Lactated Ringer's (Pitocin In Lr 10 Units/1,000 Ml) 10 unit in 1,000 mls @ 12 mls/hr IV TITRATE JOEY; Protocol Oxytocin/Lactated Ringer's (Pitocin In Lr 10 Units/1,000 Ml) 10 unit in 1,000 mls @ 100 mls/hr IV .CONTINUOUS JOEY; Protocol Lactated Ringer's (Ringers, Lactated) 1,000 mls @ 100 mls/hr IV ASDIRECTED JOEY Last Admin: 06/05/21 01:48 Dose: 100 mls/hr Documented by: Oxytocin/Lactated Ringer's (Pitocin In Lr 10 Units/1,000 Ml) 10 unit in 1,000 mls @ 6 mls/hr IV TITRATE JOEY; Protocol Last Admin: 06/05/21 05:39 Dose: 166.5 munits/min, 999 mls/hr Documented by: Ibuprofen (Ibuprofen 600 Mg Tab) 600 mg PO Q4H PRN PRN Reason: Mild pain or fever Lidocaine HCl (Lidocaine 1% 50 Ml Mdv) 50 ml INJECT ONETIME ONE Stop: 06/02/21 08:24 Last Admin: 06/05/21 10:49 Dose: Not Given Documented by: Lidocaine HCl (Lidocaine 1% 50 Ml Mdv) Confirm Administered Dose 50 ml .ROUTE .STK-MED ONE Stop: 06/03/21 11:37 Last Admin: 06/03/21 21:32 Dose: Not Given Documented by: Misoprostol (Misoprostol 25 Mcg (1/4 Of 100 Mcg) Tab) 25 mcg VAG ONETIME ONE Stop: 06/02/21 09:18 Last Admin: 06/02/21 09:29 Dose: 25 mcg Documented by: Misoprostol (Misoprostol 25 Mcg (1/4 Of 100 Mcg) Tab) 25 mcg VAG Q4HR ONE Stop: 06/02/21 13:38 Last Admin: 06/02/21 15:21 Dose: 25 mcg Documented by: Misoprostol (Misoprostol 25 Mcg (1/4 Of 100 Mcg) Tab) 50 mcg PO Q4H JOEY Last Admin: 06/03/21 12:16 Dose: Not Given Documented by: Nalbuphine HCl (Nalbuphine 10 Mg/1 Ml Vial) 10 mg IVPUSH Q2H PRN PRN Reason: Pain Last Admin: 06/04/21 01:17 Dose: 10 mg Documented by: Polyethylene Glycol (Polyethylene Glycol 3350 Powder 17 Gm Packet) 17 gm PO Q8H PRN PRN Reason: Constipation Last Admin: 06/03/21 22:31 Dose: 17 gm Documented by: Sodium Chloride (Sodium Chloride 0.9% 10 Ml Syringe) 10 ml FLUSH ASDIRECTED PRN PRN Reason: Keep Vein Open Witch Nneka (Witch Nneka Medicated Pads 40/Jar) 1 pad TOP ASDIRECTED PRN PRN Reason: Perineal Comfort Measure Last Admin: 06/05/21 12:55 Dose: 1 tub Documented by: Zinc Acetate/Diphenhydramine (Diphenhydramine/Zinc Acetate 1% Crm 28.3 Gm Tube) 0 gm TOP ASDIRECTED PRN PRN Reason: Itching Last Admin: 06/03/21 12:24 Dose: 1 applic Documented by: - Exam General: Reports: Alert, Oriented HEENT: Reports: Pupils Equal Neck: Reports: Supple Lungs: Reports: Clear to Auscultation, Normal Respiratory Effort Cardiovascular: Reports: Regular Rate, Regular Rhythm, No Murmurs GI/Abdominal Exam: Soft, Tender (Appropriately tender , fundal height U- 2) Extremities: Normal Inspection, No Pedal Edema Skin: Reports: Warm, Dry, Intact Psy/Mental Status: Reports: Alert, Normal Affect, Normal Mood
== END 2021-06-06 12:00 | disposition home or self-care (01) | DRG 805 ==
LOC: JD.OB 04:56 → OBSVTOIN 06-05 04:56 → JD.OB 06-05 04:57
PROVIDERS: ADMIT Family Medicine; ATTEND Family Medicine
PROC: 10E0XZZ Delivery of Products of Conception, External Approach (ICD-10-PCS; principal; 2021-06-05)
PROC: 0KQM0ZZ Repair Perineum Muscle, Open Approach (ICD-10-PCS; 2021-06-05)
PROC: 10907ZC Drainage of Amniotic Fluid, Therapeutic from Products of Conception, Via Natural or Artificial Opening (ICD-10-PCS; 2021-06-05)
PROC: 3E0P7VZ Introduction of Hormone into Female Reproductive, Via Natural or Artificial Opening (ICD-10-PCS; 2021-06-05)
PROC: 3E033VJ Introduction of Other Hormone into Peripheral Vein, Percutaneous Approach (ICD-10-PCS; 2021-06-05)
PROC: 3E0R3BZ Introduction of Anesthetic Agent into Spinal Canal, Percutaneous Approach (ICD-10-PCS; 2021-06-05)
PROC: 00HU33Z Insertion of Infusion Device into Spinal Canal, Percutaneous Approach (ICD-10-PCS; 2021-06-05)
DX: O26.62 Liver and biliary tract disorders in childbirth (principal); K83.1 Obstruction of bile duct; Z37.0 Single live birth; O70.1 Second degree perineal laceration during delivery; Z20.822 Contact with and (suspected) exposure to COVID-19; Z3A.37 37 weeks gestation of pregnancy
CPT/HCPCS: 01967; 36415; 51702; 59025; 59409; 80053; 85018; 85025; 85049; 86592; 87653; A9270-GY; J1200; J2300; J2590; J3010; J3490; J7120; U0002